=== PATIENT | male | born 1965 | race Caucasian/White ===

== ENCOUNTER 2017-04-30 07:36 | Observation (INO) | payer OTHER ==
--- NOTE | 2017-04-24 14:47 | GHP ---
[f rep st] PREOP HISTORY AND PHYSICAL DATE OF ADMISSION: 05/03/2017 HPI: The patient is a 51-year-old male with neck and arm pain. The majority of his pain is located on the left side of the neck that radiates into the lateral deltoid. No pain in the forearm. He mary l experience numbness into the left thumb and 4th and 5th digits. His lateral 2-digit numbness worse ns when resting his arm on hard surfaces. Neck pain has been present since February 2017. His neck pain is constant, but changes in severity. He is unsure as to what improves his pain. Certain activ ities at work will worsen his pain. He rates his neck pain at 6 to 7/10 and his arm pain at 5/10. Monika gallo has left arm weakness and issues with fine motor skills. Denies balance difficulties. He has had multiple cervical injections, with his last injection being a left-sided C5-6 and C6-7 TFESI on 2016, with Dr. Rose with only minimal relief. PAST MEDICAL HISTORY: Denies. PAST SURGICAL HISTORY: Denies. 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 He admits current chew abuse and admits to alcohol use socially. FAMILY HISTORY: No pertinent neurosurgical family history. REVIEW OF SYSTEMS: Patient denies chest pain, shortness of breath, nausea, vomiting, fevers, or chil ls. PHYSICAL EXAM: Patient was seen and examined. Appears to be in no apparent distress. Mood and affe ct are appropriate. Alert and oriented. Pupils are equal and reactive. Facial expression is symmet rical. Tongue is midline with protrusion. Hearing is grossly intact. Speech is fluent. There is n o dysarthria. Muscle strength is well preserved in his upper and lower extremities with a 5/5 except for the left upper extremity deltoid is minus 5/5, biceps +4 out of 5, and triceps 4/5. Left wrist flexion and extension 4/5. Sensation intact. ASSESSMENT/PLAN: In summary, the patient is a 51-year-old male with neck pain and arm pain. He has magnetic resonance imaging of the cervical spine from November 2016 that reveals mild retrolisthesis and broad-based disk osteophyte complex with a prominent disk bulge component and suspected superimp osed small central extrusion at C4-5. There is moderate bilateral uncovertebral hypertrophy and mild facet hypertrophy. There is mild spinal canal stenosis at this level. At C5-6, there is a mild dis k osteophyte complex with small left central extrusion. Severe left and moderate right foraminal gabbie nosis. At C6-7, there is moderate approaching severe bilateral foraminal stenosis. He has an electromyogram of the upper extremities from February 07, 2017, that reveals an acute moder bkx-co-lkftvw C6 radiculopathy with signs of active denervation and no reinnervation. There is also mild to moderate ulnar neuropathy at the elbow with focal demyelination and no evidence of active den ervation, but signs of reinnervation, suggesting chronic etiology. No plexopathy, myopathy, or carpa l tunnel syndrome. On physical exam, he has evidence of biceps, triceps and finger flexion-extension weakness on the lef t. We have explained that at C4-5 and C5-6 these levels are causing his neck and arm pain. His hand numbness is secondary to an ulnar neuropathy. We recommend proceeding with surgical intervention with a 2-level anterior cervical diskectomy and fu ernesto at C4-5 and C5-6. There is pathology at the C6-7 level. However, this is not symptomatic. Thi s could become problematic in the future and require an extension of the fusion. The risks, benefits , and procedure were discussed in detail with the patient. The patient is agreeable to this treatmen t plan and has signed consent forms. /[id number]/MODL
[2017-04-30] MEDS ORDERED: ACETAMINOPHEN 500 MG TAB PO ONE (07:54)
[2017-04-30] MEDS ORDERED: CHLORHEXIDINE GLUC HIBICLENS 118 ML BTL TP ONE (08:27)
[2017-04-30] MEDS ORDERED: SURGIFLO MATRIX KIT WITH THROMBIN 8ml TP ONE ×2 (08:27→11:37)
[2017-04-30] MEDS ORDERED: BUPIVACAINE 0.25% 30 ML SDV ONE (08:28)
[2017-04-30] MEDS ORDERED: THROMBIN (BOVINE) 5,000 UNIT VIAL TP ONE (08:28)
[2017-04-30] MEDS ORDERED: BACITRACIN 50,000 UNITS/10 ML SYR IRR ONE (08:29)
[2017-04-30] MEDS ORDERED: LR 1,000 ML IV ONE (08:44)
[2017-04-30] MEDS ORDERED: LIDOCAINE 1% 2 ML INJ ID PRN (08:44)
[2017-04-30 08:59] LABS: INR 1.01 (0.83-1.16); PROTIME(PATIENT) 13.5 SEC (12.0-15.0)
[2017-04-30] MEDS ORDERED: ceFAZolin 2 GM/SWFI 2 GM/20 ML SYR IVP ONE (09:30)
[2017-04-30] MEDS ORDERED: MIDAZOLAM 2 MG/2 ML VIAL IVP ONE (09:31)
--- NOTE | 2017-04-30 09:31 | PDANEPAE ---
ANE History of Present Illness cervical radiculopathy presents for C4-6 ACDF ANE Past Medical History - Cardiovascular History Hx Hypertension: No Hx Arrhythmias: No Hx Chest Pain: No Hx Coronary Artery / Peripheral Vascular Disease: No Hx CHF / Valvular Disease: No Hx Palpitations: No - Pulmonary History Hx COPD: No Hx Asthma/Reactive Airway Disease: No Hx Recent Upper Respiratory Infection: No Hx Oxygen in Use at Home: No Hx Sleep Apnea: Yes Sleep Apnea Screening Result - Last Documented: Positive Pulmonary History Comment: positive BHARAT with nightly CPAP - Neurologic History Hx Cerebrovascular Accident: No Hx Seizures: No Hx Dementia: No - Endocrine History Hx Diabetes: No Hypothyroid: No Hyperthyroid: No Obesity: no - Renal History Hx Renal Disorders: No - Liver History Hx Hepatic Disorders: No - Neurological & Psychiatric Hx Hx Neurological and Psychiatric Disorders: No - Congenital Disorder History Hx Congenital Disorders: No - GI History GERD: no Hx Gastrointestinal Disorders: No - Other Health History Other Health History: herniated disk C4/C5 - Chronic Pain History Chronic Pain: No - Surgical History Prior Surgeries: left knee menisectomy ANE Review of Systems Review of systems is: negative Review of Systems: - Exercise capacity METS (RN): 4 METS ANE Patient History - Allergies Allergies/Adverse Reactions: Penicillins Allergy (Verified 04/17/17 13:59) Hives - Home Medications Home medications: home medication list seen and reviewed Home Medications: Aspirin [Aspirin 81mg (*)] 81 mg PO DAILY 04/17/17 [Last Taken Unknown] - NPO status NPO Since - Liquids (Date): 04/29/17 NPO Since - Liquids (Time): 22:00 NPO Since - Solids (Date): 04/29/17 NPO Since - Solids (Time): 21:00 - Anes Hx Anes Hx: no prior problems - Smoking Hx Smoking Status: Never smoked - Family Anes Hx Family Hx Anesthesia Complications: none ANE Labs/Vital Signs - Labs Result Diagrams: 04/23/17 14:15 04/30/17 08:25 - Vital Signs Blood Pressure: 134/84 Heart Rate: 52 Respiratory Rate: 16 O2 Sat (%): 93 Height: 177.8 cm Weight: 79.379 kg ANE Physical Exam - Airway Neck exam: decreased ROM Mallampati Score: Class 1 Mouth exam: normal dental/mouth exam - Pulmonary Pulmonary: no respiratory distress - Cardiovascular Cardiovascular: regular rate and rhythym - ASA Status ASA Status: III ANE Anesthesia Plan Anesthesia Plan: general endotracheal anesthesia Specialized Airway: video laryngoscope
[2017-04-30] MEDS ORDERED: PROPOFOL 200 MG/20 ML VIAL ONE ×2 (09:35→12:08)
[2017-04-30] MEDS ORDERED: fentaNYL 100 MCG/2 ML INJ ONE ×3 (09:35→13:11)
[2017-04-30] MEDS ORDERED: PROPOFOL/EMULSION 500 MG/50 ML BOTTLE IV ONE (09:35)
[2017-04-30] MEDS ORDERED: REMIFENTANIL HCL 1 MG VIAL ONE ×2 (09:35→11:18)
[2017-04-30] MEDS ORDERED: SUCCINYLCHOLINE CHLORIDE 200 MG/10 ML SYR IVP ONE (09:44)
[2017-04-30] MEDS ORDERED: PHENYLEPHRINE HCL 100 MCG/ML SYR ONE (09:44)
[2017-04-30] MEDS ORDERED: LIDOCAINE 2% 5 ML SDV ONE (09:44)
[2017-04-30] MEDS ORDERED: ROCURONIUM 50 MG/5 ML VIAL ONE (09:44)
[2017-04-30] MEDS ORDERED: ceFAZolin 2 GM/DEXTROSE 100 ML IV ONE (09:50)
--- NOTE | 2017-04-30 09:50 | PDHPUP ---
History & Physical Update H&P update statement: This history and physical update is based on an assessment of the patient which was completed after admission or registration (within 24 hours), but prior to the surgery/procedure. H&P update: H&P reviewed & patient examined, no change in patient's condition since H&P completed
[2017-04-30] MEDS ORDERED: DEXAMETHASONE 4 MG/ML VIAL ONE (10:25)
[2017-04-30] MEDS ORDERED: HYDROmorphONE/DILAUDID 2 MG/ML INJ ONE (10:39)
[2017-04-30] MEDS ORDERED: HYDROCODONE/APAP 5/325 TAB PO PRN (11:25)
[2017-04-30] MEDS ORDERED: METOCLOPRAMIDE 10 MG/2 ML VIAL IVP PRN (11:25)
[2017-04-30] MEDS ORDERED: ALBUTEROL 3 ML DEYVIAL IH PRN (11:25)
[2017-04-30] MEDS ORDERED: NALOXONE HCL 0.4 MG/ML INJ IVP PRN (11:25)
[2017-04-30] MEDS ORDERED: HYDROmorphONE/DILAUDID 1 MG/ML INJ IVP PRN (11:25)
[2017-04-30] MEDS ORDERED: PROMETHAZINE HCL 25 MG/ML INJ IVP PRN (11:25)
[2017-04-30] MEDS ORDERED: ONDANSETRON 4 MG/2 ML VIAL IVP PRN ×2 (11:25→13:04)
[2017-04-30] MEDS ORDERED: ACETAMINOPHEN 500 MG TAB PO PRN (11:25)
[2017-04-30] MEDS ORDERED: LR 500 ML IV PRN (11:25)
[2017-04-30] MEDS ORDERED: OXYCODONE/APAP 5/325 TAB PO PRN (11:25)
[2017-04-30] MEDS ORDERED: DIAZEPAM 10 MG/2 ML SYR IVP PRN (11:25)
--- NOTE | 2017-04-30 12:12 | POSTANESTH ---
Post Anesthetic Evaluation Cardiovascular Status: Normal, Stable Respiratory Status: Normal, Stable Level of Consciousness/Mental Status: Can Participate in Eval Pain Control: Adequate, Prn Tx Ordered Nausea/Vomiting Control: Adequate, Prn Tx Ordered Complications Possibly Related to Anesthesia: None Noted
[2017-04-30] MEDS ORDERED: BISACODYL 10 MG SUPP PR PRN (13:04)
[2017-04-30] MEDS ORDERED: LACTULOSE 20 GM/30 ML UDCUP PO PRN (13:04)
[2017-04-30] MEDS ORDERED: diphenhydrAMINE 25 MG CAP PO PRN (13:04)
[2017-04-30] MEDS ORDERED: POLYETHYLENE GLYCOL 3350 17 GM PKT PO PRN (13:04)
[2017-04-30] MEDS ORDERED: MAGNESIUM HYDROXIDE 30 ML UDCUP PO PRN (13:04)
[2017-04-30] MEDS ORDERED: ONDANSETRON DISINTEGRATING 4 MG TAB PO PRN (13:04)
[2017-04-30] MEDS ORDERED: DIAZEPAM 5 MG TAB PO PRN (13:07)
--- NOTE | 2017-04-30 13:08 | POSTOPPROG ---
Post Op Note Date of Operation: 04/30/17 Surgeon: Shruthi Chatterjee Marking Room Supervisor: Shruthi Chatterjee PA-C Anesthesiologist: Dr. Carlos Anesthesia: GET(General Endotracheal) Pre-op Diagnosis: Cervical spondylosis Post-op Diagnosis: Cervical spondylosis Procedure: Anterior cervical discectomy and fusion at C4-6 Inf/Abcess present in the surg proc area at time of surgery?: No EBL: Minimal Drains: Farshad Freed Plan Plan: 51 yo male s/p ACDF C4-6 - neuro checks - pain control - advance diet as tolerated - hard collar - EZEKIEL drain x 1 - PT/OT - x-rays in am Patient seen in recovery Awake. Alert Following commands Strength full at 5/5 Sensation intact
[2017-04-30] MEDS ORDERED: HYDROmorphONE/DILAUDID 1 MG/ML INJ ONE (13:11)
[2017-04-30] MEDS: fentaNYL 100 MCG/2 ML INJ IVP PRN ×2 (13:13→13:24)
[2017-04-30] MEDS ORDERED: NS W/ 20 KCl/L 1,000 ML IV SCH (13:15)
--- NOTE | 2017-04-30 13:32 | GOP ---
[f rep st] OPERATIVE REPORT DATE OF OPERATION: 04/30/2017 SURGEON: Marie Alexander DO NEUROSURGEON: Marie Alexander D.O. PRINCIPAL NETWORK ENGINEER: Shruthi Chatterjee P.A.-C. PREOPERATIVE DIAGNOSIS: 1. Cervical spondylosis. 2. Radiculopathy. 3. Cervicalgia. POSTOPERATIVE DIAGNOSIS: 1. Cervical spondylosis. 2. Radiculopathy. 3. Cervicalgia. PROCEDURE PERFORMED: C4-5, C5-6 anterior cervical diskectomy and fusion with LDR JUAN LUIS-C 12 x 14 x 8 m m graft at L4-5 and 12 x 14 x 9 mm graft at C5-6. Autograft, allograft, microscope. FINDINGS: SPECIMENS: None. ESTIMATED BLOOD LOSS: 40 mL. INDICATIONS: This is a 51-year-old male with neck pain and arm pain, left radicular symptoms greater than right with cervical spondylosis and foraminal stenosis who has failed conservative management a nd elected to move forward with ACDF. He was identified and consented. Sites were marked. DESCRIPTION OF PROCEDURE: Brought to the operating room, anesthetized under general endotracheal ane sthesia. Interscapular roll was placed. Shoulders were taped down. Head was placed in a neutral po sition in a Miranda assistant head cashier. Incision site was marked using x-ray report from the right seconda ry to surgeon preference as well as he had a deviated hyoid anatomically. Incision site was marked. He was prepped and draped in the usual sterile fashion. Incision was anesthetized with 0.5% Marcain e with epinephrine. Incision was made with a 10 blade. Hemostasis obtained with bipolar cautery. W e dissected through the platysma with Metzenbaum scissors and moving along the medial border of the S CM retracting the trachea and esophagus medially palpating the carotid artery laterally with the hand held Cloward retracted medially coming down onto the anterior aspect of the cervical spine clearing t he prevertebral fascia. Placed an 18-gauge spinal needle, marked the C4-5 and C5-6 levels with Bovie . Measured with the Shadow Line retractor and brought into place. Placed Boston pins and under x-ra y they were in the appropriate position at C4-5. Placed them under distraction, brought in the micro scope using a high-speed drill, removed the disk and cartilaginous endplate from the superior and inf erior endplates and then opened the posterior longitudinal ligament with micro upgoing curette. Exte nded this 1 Kerrison and then completed removing the posterior longitudinal ligament, disc and osteop hyte complex from the superior and inferior endplate and out bilateral lateral foramina until it was well decompressed and the foraminal fat was visualized bilaterally. Once we were well decompressed w e harvested autograft and measured the LDR JUAN LUIS-C graft. The trial was placed under x-ray. The graft was then packed with some DBM and the patient's own bone tamped it into place and under x-ray was go od position. The Boston pin was removed superiorly and the long wing was tamped into place. With th e 1 impactor verified it was in the appropriate position with x-ray. Cold welded with the 1 cold wel ded with the 2 impactor. The short wing was placed inferiorly and tamped into place. Verified it wa s in the appropriate position under x-ray. Cold welded with 1, cold welded with the 2. Moved the Ca spar pin down to C6 and placed him under distraction at C6. Using the high-speed drill removed the d isk and cartilaginous endplate of the superior and inferior endplates coming down the posterior longi tudinal ligament which was opened with a micro upgoing curette extended with 1 Kerrison and then usin g the 2 cores removed the disk and cartilaginous endplate from the superior and inferior endplates an d out bilateral lateral foramen until it was well decompressed and foraminal fat was visualized. We then harvested autograft and again measured an LDR JUAN LUIS-C graft under x-ray. We then packed the graft with DBM and the patient's own bone, and tamped it into place. Under x-ray it was in good position. Removed the Boston pin from the C5 vertebral body. Packing the hole with Gelfoam bullet, tamped th e short wing superiorly, verified it was in the appropriate position under x-ray. Cold welded with t he 1, cold welded with the 2. We then removed the Boston pin inferiorly and packed this hole with Ge lfoam bullet. Placed a long wing inferiorly, tamped into place. Verified it was in the appropriate position. Cold welded with the 1, cold welded with the 2. Took a final x-ray. All hardware was in good position and the frame well decompressed. The final neuromonitoring was stable. We copiously i rrigated with over a liter of gentamicin infused saline. Once meticulous hemostasis had been obtaine d, the drain was "trocared" out and placed into the prevertebral space. The study drug was placed. I inspected the jaramillo for meticulous hemostasis on the way out which we did have. We then closed the platysma with 2-0 Vicryl pop-offs, subcutaneous layer with 3-0 Vicryl pop-offs. The skin was closed with 4-0 running Monocryl and Dermabond. The drain was sutured in with a 2-0 Vicryl pop-off but not placed to bulb suction as per the PE protocol. The patient tolerated the procedure well. Neuromoni toring was stable. FLUIDS: 2 L crystalloid. URINE OUTPUT: None. DRAINS: None. COMPLICATIONS: None. /[id number]/MODL
[2017-04-30] MEDS: ACETAMINOPHEN 500 MG TAB PO SCH ×2 (15:14→21:44)
[2017-04-30] MEDS: oxyCODONE IR 5 MG TAB PO PRN (15:57)
[2017-04-30] MEDS: ceFAZolin 2 GM/DEXTROSE 100 ML IV SCH (17:34)
[2017-04-30] MEDS: SENNOSIDES/DOCUSATE SODIUM TAB PO SCH (22:12)
[2017-05-01] MEDS: ceFAZolin 2 GM/DEXTROSE 100 ML IV SCH (02:44)
[2017-05-01] MEDS: ACETAMINOPHEN 500 MG TAB PO SCH ×3 (05:24→21:55)
--- NOTE | 2017-05-01 06:58 | NEUSURGPN ---
Date of Surgery: 04/30/17 Post Op Day: 1 Assessment/Plan: 51 yo male s/p ACDF C4-6 - neuro stable - pain controlled on orals - hard collar at all times except shower, Pulp Operator to fit with better collar - EZEKIEL drain x 1- remove (minimal output) - postop x-rays pending - PT/OT/Speech - DVT prophylaxis: SCDs/TEDs, Lovenox to start POD#3 - dispo: home later today if continues to progress well Subjective: Arm symptoms improved. Having difficulty with mucous and secretions. Some swallowing troubles. Objective: Awake. Alert. PERRL. EOMI Facial expression symmetrical Muscle strength full at 5/5 Sensation intact - Physician Discussed Patient with Dr.: Catherine Neurosurgery Physical Exam - Vitals, I&O, Labs I and O 04/30/17 05/01/17 05/02/17 05:59 05:59 05:59 Intake Total 2100 Output Total 755 Balance 1345 Weight 79.379 kg Intake: Oral (ml) 600 IV Intake (ml) 1500 Output: Urine (ml) 700 Urinal 700 Estimated Blood Loss (ml) 50 EZEKIEL Drain Output (ml) 5 #1 Right Anterior Neck 5 Farshad Freed Other: Number of Voids Toilet 1 Urinal 1 Bladder Scan Volume (ml) Urinal 483 Post Void Residual Scan Volume (ml) Toilet 19 Vital Signs Temp Pulse Resp BP Pulse Ox 36.7 C 72 16 110/74 96 05/01/17 04:00 05/01/17 04:00 05/01/17 04:00 05/01/17 04:00 05/01/17 04:00 Laboratory Results 04/23/17 14:15 04/30/17 08:25 ICD10 Worksheet Patient Problems: Problems Problem Status Onset Cervical spondylosis Acute - ICD10 Problem Qualifiers (1) Cervical spondylosis
[2017-05-01] MEDS: SENNOSIDES/DOCUSATE SODIUM TAB PO SCH ×2 (09:08→21:55)
[2017-05-01] MEDS: oxyCODONE IR 5 MG TAB PO PRN ×3 (11:35→21:54)
--- NOTE | 2017-05-01 11:37 | ASMTCMCOM ---
CM Note CM Note Notes: Pt is on POD#1 after ACDF C4-6 surgery. Pt lives at home w/. Speech recommending home, awaiting PT/OT recommendations. CM will follow. Date Signed: 05/01/2017 11:33 AM Electronically Signed By:Luz Marina Esqueda RN
[2017-05-02] MEDS: ACETAMINOPHEN 500 MG TAB PO SCH ×2 (05:56→14:50)
[2017-05-02 07:30] VITALS: RESP 16; O2SAT 92
--- NOTE | 2017-05-02 08:03 | NEUSURGPN ---
Assessment/Plan: 51 yo male s/p ACDF C4-6 POD#2 - neuro stable - pain controlled on orals - hard collar at all times except shower, has new collar that is fitting better - postop x-rays pending - PT/OT/Speech - Dysphagia - will see how he does with breakfast this am, if continued issues will give Decadron 10mgx1 dose - DVT prophylaxis: SCDs/TEDs, Lovenox to start POD#3 - dispo: home later today if continues to progress well Subjective: Pt resting in bed, thinks swallowing is slightly better Objective: AAOx3 NAD VSS MAEx4 Motor 5/5 BUE Incision dressed cdi C collar on Urinary Catheter in Place: No - Physician Discussed Patient with : Catherine Neurosurgery Physical Exam - Vitals, I&O, Labs I and O 05/01/17 05/02/17 05/03/17 05:59 05:59 05:59 Intake Total 2100 440 Output Total 755 700 600 Balance 1345 -260 -600 Weight 79.379 kg Intake: Oral (ml) 600 440 IV Intake (ml) 1500 Output: Urine (ml) 700 700 600 Toilet 700 600 Urinal 700 Estimated Blood Loss (ml) 50 EZEKIEL Drain Output (ml) 5 #1 Right Anterior Neck 5 Farshad Freed Other: Number of Voids Toilet 1 1 1 Urinal 1 Bladder Scan Volume (ml) Urinal 483 Post Void Residual Scan Volume (ml) Toilet 19 Vital Signs Temp Pulse Resp BP Pulse Ox 36.5 C 68 16 124/80 H 92 05/02/17 07:29 05/02/17 07:29 05/02/17 07:29 05/02/17 07:29 05/02/17 07:29 Laboratory Results 04/23/17 14:15 04/30/17 08:25 ICD10 Worksheet Patient Problems: Problems Problem Status Onset Cervical spondylosis Acute
[2017-05-02] MEDS: SENNOSIDES/DOCUSATE SODIUM TAB PO SCH (08:27)
[2017-05-02] MEDS ORDERED: ENOXAPARIN 40 MG/0.4 ML SYR SC SCH (09:00)
[2017-05-02 11:27] VITALS: BP 124/85; PULSE 72; TEMP 98.2
--- NOTE | 2017-05-02 13:05 | ASMTCMCOM ---
CM Note CM Note Notes: PT recommending Outpatient Rehab. OT recommendinh home no needs. Anticipate dc home with support of spouse when medically stable. CM will follow if needs/changes. Dc plan-home no needs Date Signed: 05/02/2017 01:05 PM Electronically Signed By:Tia Mason RN
[2017-05-02] MEDS ORDERED: FLU VACC QS 2017-18 (3YR+)/PF 0.5 ML SYR (FLUARIX QUAD) IM ONE (15:41)
== END 2017-05-02 16:25 | disposition home or self-care (01) ==
LOC: F3N 07:36 → INTOOBSV 07:36 → F3N 13:47
PROVIDERS: ADMIT Neurological Surgery; ATTEND Neurological Surgery
PROC: 4A1004G Monitoring of Central Nervous Electrical Activity, Intraoperative, Open Approach (ICD-10-PCS; principal; 2017-04-30 09:30)
PROC: 0PH304Z Insertion of Internal Fixation Device into Cervical Vertebra, Open Approach (ICD-10-PCS; principal; 2017-04-30 09:30)
PROC: 0RG20A0 Fusion of 2 or more Cervical Vertebral Joints with Interbody Fusion Device, Anterior Approach, Anterior Column, Open Approach (ICD-10-PCS; principal; 2017-04-30 09:30)
PROC: 0RG2070 Fusion of 2 or more Cervical Vertebral Joints with Autologous Tissue Substitute, Anterior Approach, Anterior Column, Open Approach (ICD-10-PCS; principal; 2017-04-30 09:30)
DX: M47.22 Other spondylosis with radiculopathy, cervical region (principal); M48.02 Spinal stenosis, cervical region
CPT/HCPCS: 20936; 22551; 22552; 22845; 72040; 76001; 90471; 92526; 92610; 97161; 97165; 97535; G0378; C1713; G0008; J0171; J0330; J0690; J1100; J1170; J1650; J2250; J2370; J2704; J3010